=== PATIENT | female | born 1975 | race Caucasian/White ===

== ENCOUNTER 2019-06-07 18:28 | Emergency (ER) | payer MEDICAID, OTHER ==
[~2019-06-07] VITALS: Ht 175.3 cm; Wt 95.6 kg
--- NOTE | 2019-06-07 18:46 | ED Lower Extremity ---
General Stated Complaint: KNEE PAIN Source: patient History of Present Illness Date Seen by Provider: Jun 07, 2019 Time Seen by Provider: 19:34 Initial Comments 44 yo F presenting with complaints of right knee pain that has been going on since March. She had pain to medial knee initially but now it is more to the lateral part of her knee. She has been having some arthritis and take Aleve with improved pain. However in the last month or so it was not helping as much and the lateral part of her knee was hurting more. She has Dr. Diane on her [place] Medicaid card but his office told her that she is not taking any more Med icaid patients. She denies any injury to the knee. She does help her dad and when she helps him get in and out of the car she does have to bend down a lot because the car is low to the ground. She was hoping to get a knee brace to help with her pain and symptoms. Allergies and Home Medications Allergies Coded Allergies: peanut oil (Verified Allergy, Unknown, 06/07/19) Patient Home Medication List Home Medication List Reviewed: Yes Review of Systems Constitutional: No chills, No fever EENTM: no symptoms reported Respiratory: no symptoms reported Cardiovascular: no symptoms reported Gastrointestinal: no symptoms reported Genitourinary: no symptoms reported Musculoskeletal: see HPI, joint pain (right knee pain ) Skin: no symptoms reported Psychiatric/Neurological: Denies Numbness, Denies Paresthesia, Denies Tingling Past Owmmwet-Pugvqz-Bmglbn Hx Past Med/Social Hx: Reviewed Nursing Past Med/Soc Hx Patient Social History Recent Foreign Travel: No Contact w/Someone Who Travel: No Past Medical History Respiratory: Yes Asthma Musculoskeletal: Yes Arthritis Physical Exam Vital Signs Vital Signs - First Documented 06/07/19 18:35 Temp 36.7 Pulse 75 Resp 18 B/P (MAP) 143/89 (107) Pulse Ox 97 O2 Delivery Room Air Capillary Refill : Height, Weight, BMI Height: '" Weight: lbs. oz. 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, alert, oriented x 3, abnormal gait (antalgic due to right knee pain) Skin: normal color, warm/dry Progress/Results/Core Measures Results/Orders My Orders Orders - REESE PINEDA MD Knee 3 View Right (06/07/19 18:45) Sampson Bandage (06/07/19 19:00) Knee Immobilizer (06/07/19 19:00) Vital Signs/I&O 06/07/19 06/07/19 18:35 19:19 Temp 36.7 36.7 Pulse 75 75 Resp 18 18 B/P (MAP) 143/89 (107) 143/89 (107) Pulse Ox 97 97 O2 Delivery Room Air Room Air Progress Progress Note #1: Progress Note Obtain xrays of the right knee to evaluate the bony structure but since the pain is along ligaments and soft tissue she likely would need outpatient evaluation with ortho or possible MRI. Progress Note #2: Progress Note No acute fracture or dislocation on films. She has arthritic changes. Treat with sampson bandage and knee immobilizer and follow up with pcp and ortho for continued care Diagnostic Imaging Diagonstic Imaging: Xray Plain Films/CT/US/NM/MRI: knee Comments NAME: [place] MEDINA [facility] REC#: [id number] PT STATUS: REG ER : 1975 PHYSICIAN: REESE PINEDA MD ADMIT DATE: 06/07/19/ER FS Draft Date of Exam:06/07/19 KNEE 3 VIEW RIGHT INDICATION: Right knee pain for one month. Time of exam: 6:51 PM 3 views of the right knee were obtained. There is medial and patellofemoral compartment degenerative change with joint space narrowing and marginal spurring. Lateral compartment is maintained. There is some spurring of the tibial spines. Corticated osseous densities project adjacent to the tibial spines on the AP view. Small loose bodies cannot be entirely excluded. No joint effusion is identified. There are no fractures. IMPRESSION: Degenerative changes and questionable small loose bodies. No acute bony abnormality is detected. Dictated on workstation # [id number] Dict: 06/07/191901 Trans: 06/07/191906 [facility] [id number] Interpreted by: CARLOS A VALDERRAMA MD Electronically signed by: Reviewed: Reviewed by Me Departure Impression Primary Impression: Strain of right knee and leg Qualified Codes: S86.911A - Strain of unspecified muscle(s) and tendon(s) at lower leg level, right leg, initial encounter Additional Impressions: Lateral knee pain Qualified Codes: M25.561 - Pain in right knee Osteoarthritis of knee Qualified Codes: M17.11 - Unilateral primary osteoarthritis, right knee Disposition: HOME, SELF-CARE Condition: Stable Departure-Patient Inst. Decision time for Depature: 19:11 Referrals: [facility] [place] Patient Instructions: Chronic Knee Pain (DC), Knee Immobilizer (DC), Knee Pain (DC) Add. Discharge Instructions: You could call Ray Raza with Orthopedics about follow up and see if he could see your for your knee. His office number is [phone] You could check with [facility] about having them help you contact Medicaid to change your doctor from Dr. Diane to a provider in the [facility] clinic so you could follow up for care there. Use Sampson bandage for support for your knee when you have to be in your car driving and otherwise you could wear the knee immobilizer to let your knee rest and see if that helps your pain improve. Continue with the Hay for pain and inflammation REESE PINEDA MD Jun 07, 2019 18:46
--- NOTE | 2019-06-07 19:08 | Diagnostic Imaging Report ---
INDICATION: Right knee pain for one month. Time of exam: 6:51 PM 3 views of the right knee were obtained. There is medial and patellofemoral compartment degenerative change with joint space narrowing and marginal spurring. Lateral compartment is maintained. There is some spurring of the tibial spines. Corticated osseous densities project adjacent to the tibial spines on the AP view. Small loose bodies cannot be entirely excluded. No joint effusion is identified. There are no fractures. IMPRESSION: Degenerative changes and questionable small loose bodies. No acute bony abnormality is detected. Dictated by: Dictated on workstation # [id number]
[2019-06-07 19:19] VITALS: BP 143/89
== END 2019-06-07 19:20 | disposition home or self-care (01) ==
LOC: ER FS 18:30
DX: S86.911A Strain of unspecified muscle(s) and tendon(s) at lower leg level, right leg, initial encounter (principal); M17.11 Unilateral primary osteoarthritis, right knee; J45.909 Unspecified asthma, uncomplicated; Z91.010 Allergy to peanuts
CPT/HCPCS: 73562

== ENCOUNTER 2021-07-15 05:34 | Outpatient (CLI) | payer MEDICAID ==
[~2021-07-15] VITALS: Ht 175.3 cm; Wt 99.7 kg
[2021-07-18] MEDS ORDERED: DICY20TA PO (11:15)
[2021-07-18] MEDS ORDERED: RT-ALBUINH IH (11:15)
[2021-07-18] MEDS ORDERED: FLUT1DIS28 IH (11:15)
== END 2021-07-18 11:17 ==
LOC: PREOP 05:34
PROVIDERS: ATTEND Surgery
DX: Z01.818 Encounter for other preprocedural examination (principal)

== ENCOUNTER 2021-07-23 10:29 | Day surgery (SDC) | payer MEDICAID ==
[~2021-07-23] VITALS: Ht 175.3 cm; Wt 99.7 kg
[~2021-07-23 10:29] MED LIST: DICY20TA PO; FLUT1DIS28 IH; RT-ALBUINH IH
[2021-07-23] MEDS ORDERED: LACTATED RINGERS 1,000 ML IV STA (10:35)
[2021-07-23] MEDS ORDERED: LACTATED RINGERS 1,000 ML IV ONE (10:39)
[2021-07-23 10:40] VITALS: BP 108/71
--- NOTE | 2021-07-23 10:41 | Progress Note-Pre Operative ---
Pre-Operative Progress Note H&P Reviewed The H&P was reviewed, patient examined and no changes noted. Date Seen by Provider: Jul 23, 2021 Time Seen by Provider: 10:40 Date H&P Reviewed: Jul 23, 2021 Time H&P Reviewed: 10:40 Pre-Operative Diagnosis: screening colonoscopy JC SETHI DO Jul 23, 2021 10:41
[2021-07-23 11:30] LABS: AMPHETAMINE SCREEN, URINE POSITIVE (NEGATIVE); BARBITURATE SCREEN URINE NEGATIVE (NEGATIVE); BENZODIAZEPINES SCREEN URINE NEGATIVE (NEGATIVE); CANNABINOID SCREEN, URINE NEGATIVE (NEGATIVE); COCAINE SCREEN URINE NEGATIVE (NEGATIVE); METHADONE STAT NEGATIVE (NEGATIVE); METHAMPHETAMINE SCREEN URINE S POSITIVE (NEGATIVE); OPIATE SCREEN URINE NEGATIVE (NEGATIVE); OXYCODONE STAT NEGATIVE (NEGATIVE); PROPOXYPHENE STAT NEGATIVE (NEGATIVE); TRICYCLIC ANTIDEPRESSANTS SCRE NEGATIVE (NEGATIVE)
== END 2021-07-23 12:00 | disposition home or self-care (01) ==
LOC: ENDO 10:29
PROVIDERS: ATTEND Surgery
DX: Z12.11 Encounter for screening for malignant neoplasm of colon (principal); K58.0 Irritable bowel syndrome with diarrhea; F17.210 Nicotine dependence, cigarettes, uncomplicated; Z53.8 Procedure and treatment not carried out for other reasons
CPT/HCPCS: 80306; 84703

== ENCOUNTER 2021-08-21 10:55 | Emergency (ER) | payer MEDICAID ==
[~2021-08-21] VITALS: Ht 175 cm; Wt 99.0 kg
[2021-08-21 10:58] VITALS: BP 124/64
[2021-08-21] MEDS ORDERED: ONDANSETRON 4 MG/2 ML (SDV) Z0FRAN IVP STA (11:20)
[2021-08-21 11:26] LABS: BILIRUBIN,URINE NEGATIVE (NEGATIVE); CLARITY,URINE CLEAR; COLOR,URINE YELLOW; GLUCOSE, URINE (UA) 3+ (NEGATIVE); KETONES,URINE 2+ (NEGATIVE); LEUKOCYTE ESTERASE ,URINE NEGATIVE (NEGATIVE); NITRITE,URINE POSITIVE (NEGATIVE); PROTEIN,URINE NEGATIVE (NEGATIVE)
[2021-08-21 11:26] LABS: BASOPHILS % (AUTO) 0 % (0-10); EOSINOPHILS % (AUTO) 0 % (0-10); HEMATOCRIT 46 % (35-52); LYMPHOCYTES # (AUTO) 1.9 10^3/uL (1.0-4.0); LYMPHOCYTES % (AUTO) 12 % (12-44); MEAN CORPUSCULAR HEMOGLOBIN 31 pg (25-34); MEAN CORPUSCULAR HGB CONC 35 g/dL (32-36); MEAN CORPUSCULAR VOLUME 90 fL (80-99); MEAN PLATELET VOLUME 12.3 fL (9.0-12.2); MONOCYTES # (AUTO) 1.1 10^3/uL (0.0-1.0); MONOCYTES % (AUTO) 7 % (0-12); NEUTROPHILS # (AUTO) 13.3 10^3/uL (1.8-7.8); NEUTROPHILS % (AUTO) 81 % (42-75); PLATELET COUNT 208 10^3/uL (130-400); WHITE BLOOD COUNT 16.4 10^3/uL (4.3-11.0)
[2021-08-21] MEDS ORDERED: NS IV 1000 ML 1,000 ML IV SCH (11:30)
[2021-08-21] MEDS ORDERED: KETOROLAC 30 MG/ML VIAL IVP ONE (11:30)
[2021-08-21 11:36] LABS: BACTERIA,URINE MODERATE /HPF; SQUAMOUS EPITHELIAL CELL,UR 0-2 /HPF
[2021-08-21] MEDS ORDERED: CATHETER FLUSH 10 ML SYR IV PRN (11:45)
[2021-08-21] MEDS ORDERED: NS 100 ML (IVPB) BAG IV ONE (11:45)
[2021-08-21] MEDS ORDERED: HOLD METFORMIN - RECEIVED CONTRAST 20 ML VIAL IV SCH (11:45)
[2021-08-21] MEDS ORDERED: IOHEXOL 350 MG/ML 100 ML (OMNIPAQUE 350) VIAL IV ONE (11:45)
[2021-08-21 11:53] LABS: ATYPICAL LYMPHOCYTES 1 %; BAND NEUTROPHILS 5 %; BASOPHILS % (MANUAL) 0 %; EOSINOPHILS % (MANUAL) 0 %; LYMPHOCYTES % (MANUAL) 17 %; MONOCYTES % (MANUAL) 3 %; NEUTROPHILS % (MANUAL) 74 %
[2021-08-21 11:54] LABS: BILIRUBIN,TOTAL 0.9 MG/DL (0.1-1.0); CALCIUM 9.2 MG/DL (8.5-10.1); CREATININE SERUM 0.51 MG/DL (0.60-1.30); POTASSIUM 3.9 MMOL/L (3.6-5.0)
[2021-08-21 11:55] LABS: ALBUMIN 3.9 GM/DL (3.2-4.5); TOTAL PROTEIN 7.6 GM/DL (6.4-8.2)
[2021-08-21 12:10] LABS: AMPHETAMINE SCREEN, URINE POSITIVE (NEGATIVE); BARBITURATE SCREEN URINE NEGATIVE (NEGATIVE); BENZODIAZEPINES SCREEN URINE NEGATIVE (NEGATIVE); CANNABINOID SCREEN, URINE NEGATIVE (NEGATIVE); COCAINE SCREEN URINE NEGATIVE (NEGATIVE); METHADONE STAT NEGATIVE (NEGATIVE); METHAMPHETAMINE SCREEN URINE S POSITIVE (NEGATIVE); OPIATE SCREEN URINE NEGATIVE (NEGATIVE); OXYCODONE STAT NEGATIVE (NEGATIVE); PROPOXYPHENE STAT NEGATIVE (NEGATIVE); TRICYCLIC ANTIDEPRESSANTS SCRE NEGATIVE (NEGATIVE)
--- NOTE | 2021-08-21 12:21 | ED Abdominal Pain ---
General Chief Complaint: Abdominal/GI Problems Stated Complaint: VOMITING; SYNCOPAL EPISODES; ABD PAIN Nursing Triage Note: Pt presents n/v since last night after she ate chicken salad. She had one episode of bloody diarrhea last night, nothing since then. C/o Right lower quadrant pain radiating to the LLQ. LS, RN History of Present Illness Date Seen by Provider: Aug 21, 2021 Time Seen by Provider: 11:10 Initial Comments 46-year-old female with PMH of asthma and IBS, is here with complaints of right lower quadrant abdominal pain which began yesterday afternoon. Patient's last meal was a chicken salad yesterday at lunch. Since then patient has had multiple episodes of nausea and vomiting has been intermittent up to about 3 AM today. No vomiting since then, but only nausea. Patient does not had anything to eat or drink today other than half a bottle of water. Patient denies fever, chills, chest pain, SOB, sick contacts, dysuria, hematuria. Patient had one episode of diarrhea around midnight. Allergies and Home Medications Allergies Coded Allergies: peanut oil (Verified Allergy, Unknown, 06/07/19) Patient Home Medication List Home Medication List Reviewed: Yes Albuterol Sulfate (Proair Hfa) 1 Puff Puff, 2 PUFF IH Q4H PRN for WHEEZING, (Re ported) Entered as Reported by: EMILIANO WOODSON on 07/18/21 111 Dicyclomine HCl (Dicyclomine HCl) 20 Mg Tablet, 20 MG PO QID, (Reported) Entered as Reported by: EMILIANO WOODSON on 07/18/21 1115 Fluticasone/Salmeterol (Advair 100-50 Diskus) 1 Each Blst.w.dev, 1 EACH IH BID, (Reported) Entered as Reported by: EMILIANO WOODSON on 07/18/21 1115 Review of Systems Review of Systems Constitutional: no symptoms reported EENTM: No Symptoms Reported Respiratory: No Symptoms Reported Cardiovascular: No Symptoms Reported Gastrointestinal: Abdominal Pain, Nausea, Vomiting Genitourinary: No Symptoms Reported Musculoskeletal: no symptoms reported Skin: no symptoms reported Psychiatric/Neurological: No Symptoms Reported Endocrine: No Symptoms Reported Hematologic/Lymphatic: No Symptoms Reported Past Zkralim-Okzgwl-Wakpwt Hx Patient Social History Tobacco Use?: Yes Tobacco type used: Cigarettes Smoking Status: Current Everyday Smoker Smokeless Tobacco Frequency: Never a User Use of E-Cig and/or Vaping dev: No Use of E-Cig and/or Vaping Vidal: Never a User Substance use?: Yes Substance type: Marijuana Substance frequency: Daily Alcohol Use?: No Pt feels they are or have been: No Immunizations Up To Date First/Initial COVID19 Vaccinat: NO Second COVID19 Vaccination Herbie: NO Third COVID19 Vaccination Date: NO Seasonal Allergies Seasonal Allergies: No Past Medical History Surgeries: Yes (when 1 yrs old had open heart sx for cyst on heart) Respiratory: Yes Asthma Cardiac: No Neurological: No Genitourinary: No Gastrointestinal: Yes Irritable Bowel Musculoskeletal: Yes Arthritis Endocrine: No HEENT: No Cancer: No Psychosocial: No Integumentary: No Blood Disorders: No Physical Exam Vital Signs Vital Signs - First Documented 08/21/21 10:58 Temp 36.2 Pulse 84 Resp 14 B/P (MAP) 124/64 (84) Pulse Ox 97 O2 Delivery Room Air Capillary Refill : Less Than 3 Seconds Height/Weight/BMI Height: '" Weight: lbs. oz. kg; 32.00 BMI Method: General Appearance: moderate distress, obese Respiratory: chest non-tender, lungs clear, normal breath sounds, no respiratory distress Cardiovascular: normal peripheral pulses, regular rate, rhythm Gastrointestinal: soft, no organomegaly, abnormal bowel sounds (quiet bowel sounds), tenderness (in RLQ) Extremities: normal range of motion Back: normal inspection, no CVA tenderness Neurologic/Psychiatric: alert, normal mood/affect, oriented x 3 Skin: normal color Progress/Results/Core Measures Results/Orders Lab Results Laboratory Tests Test 08/21/21 11:00 08/21/21 11:17 Range/Units Urine Color YELLOW Urine Clarity CLEAR Urine pH 6.0 5-9 Urine Specific [place] 1.010 L 1.016-1.022 Urine Protein NEGATIVE NEGATIVE Urine Glucose (UA) 3+ H NEGATIVE Urine Ketones 2+ H NEGATIVE Urine Nitrite POSITIVE H NEGATIVE Urine Bilirubin NEGATIVE NEGATIVE Urine Urobilinogen 0.2 < = 1.0 MG/DL Urine Leukocyte Esterase NEGATIVE NEGATIVE Urine RBC (Auto) NEGATIVE NEGATIVE Urine RBC NONE /HPF Urine WBC 10-25 H /HPF Urine Squamous Epithelial Cells 0-2 /HPF Urine Crystals NONE /LPF Urine Bacteria MODERATE H /HPF Urine Casts NONE /LPF Urine Mucus NEGATIVE /LPF Urine Culture Indicated YES Urine Opiates Screen NEGATIVE NEGATIVE Urine Oxycodone Screen NEGATIVE NEGATIVE Urine Methadone Screen NEGATIVE NEGATIVE Urine Propoxyphene Screen NEGATIVE NEGATIVE Urine Barbiturates Screen NEGATIVE NEGATIVE Ur Tricyclic Antidepressants Screen NEGATIVE NEGATIVE Urine Phencyclidine Screen NEGATIVE NEGATIVE Urine Amphetamines Screen POSITIVE H NEGATIVE Urine Methamphetamines Screen POSITIVE H NEGATIVE Urine Benzodiazepines Screen NEGATIVE NEGATIVE Urine Cocaine Screen NEGATIVE NEGATIVE Urine Cannabinoids Screen NEGATIVE NEGATIVE White Blood Count 16.4 H 4.3-11.0 10^3/uL Red Blood Count 5.14 H 3.80-5.11 10^6/uL Hemoglobin 16.0 11.5-16.0 g/dL Hematocrit 46 35-52 % Mean Corpuscular Volume 90 80-99 fL Mean Corpuscular Hemoglobin 31 25-34 pg Mean Corpuscular Hemoglobin Concent 35 32-36 g/dL Red Cell Distribution Width 13.1 10.0-14.5 % Platelet Count 208 130-400 10^3/uL Mean Platelet Volume 12.3 H 9.0-12.2 fL Immature Granulocyte % (Auto) 1 % Neutrophils (%) (Auto) 81 H 42-75 % Lymphocytes (%) (Auto) 12 12-44 % Monocytes (%) (Auto) 7 0-12 % Eosinophils (%) (Auto) 0 0-10 % Basophils (%) (Auto) 0 0-10 % Neutrophils # (Auto) 13.3 H 1.8-7.8 10^3/uL Lymphocytes # (Auto) 1.9 1.0-4.0 10^3/uL Monocytes # (Auto) 1.1 H 0.0-1.0 10^3/uL Eosinophils # (Auto) 0.0 0.0-0.3 10^3/uL Basophils # (Auto) 0.0 0.0-0.1 10^3/uL Immature Granulocyte # (Auto) 0.1 0.0-0.1 10^3/uL Neutrophils % (Manual) 74 % Lymphocytes % (Manual) 17 % Monocytes % (Manual) 3 % Eosinophils % (Manual) 0 % Basophils % (Manual) 0 % Band Neutrophils 5 % Atypical Lymphocytes 1 % Sodium Level 134 L 135-145 MMOL/L Potassium Level 3.9 3.6-5.0 MMOL/L Chloride Level 98 98-107 MMOL/L Carbon Dioxide Level 20 L 21-32 MMOL/L Anion Gap 16 H 5-14 MMOL/L Blood Urea Nitrogen 11 7-18 MG/DL Creatinine 0.51 L 0.60-1.30 MG/DL Estimat Glomerular Filtration Rate 116 BUN/Creatinine Ratio 22 Glucose Level 394 H 70-105 MG/DL Calcium Level 9.2 8.5-10.1 MG/DL Corrected Calcium 9.3 8.5-10.1 MG/DL Total Bilirubin 0.9 0.1-1.0 MG/DL Aspartate Amino Transf (AST/SGOT) 40 H 5-34 U/L Alanine Aminotransferase (ALT/SGPT) 51 0-55 U/L Alkaline Phosphatase 135 40-136 U/L Total Protein 7.6 6.4-8.2 GM/DL Albumin 3.9 3.2-4.5 GM/DL Lipase 27 8-78 U/L Human Chorionic Gonadotropin, Quant < 5 <5 MIU/ML My Orders Orders - LUZ GABRIEL MD Comprehensive Metabolic Panel (08/21/21 11:18) Lipase (08/21/21 11:18) Ua Culture If Indicated (08/21/21 11:18) Ed Iv/Invasive Line Start (08/21/21 11:18) Cbc With Automated Diff (08/21/21 11:18) Ct Abdomen/Pelvis W (08/21/21 11:18) Hcg,Quantitative (08/21/21 11:18) Drug Screen Stat (Urine) (08/21/21 11:20) Ketorolac Injection (Toradol Injection) (08/21/21 11:30) Ondansetron Injection (Zofran Injectio (08/21/21 11:20) Ed Iv/Invasive Line Start (08/21/21 11:21) Ns Iv 1000 Ml (Sodium Chloride 0.9%) (08/21/21 11:30) Manual Differential (08/21/21 11:17) Iohexol Injection (Omnipaque 350 Mg/Ml 1 (08/21/21 11:45) Received Contrast (Hold Metformin- Contr (08/21/21 11:45) Sodium Chloride Flush (Catheter Flush Sy (08/21/21 11:45) Ns (Ivpb) (Sodium Chloride 0.9% Ivpb Bag (08/21/21 11:45) Urine Culture (08/21/21 11:00) Blood Culture (08/21/21 12:27) Ceftriaxone 1 Gm Pre-Mix (Rocephin 1 Gm (08/21/21 12:27) Medications Given in ED Current Medications Medications Dose Ordered Sig/Toñito Route Start Time Stop Time Status Last Admin Dose Admin Iohexol 100 ml ONCE ONCE IV 08/21/21 11:45 08/21/21 11:46 DC 08/21/21 12:09 100 ML Ketorolac Tromethamine 15 mg ONCE ONCE IVP 08/21/21 11:30 08/21/21 11:31 DC 08/21/21 11:39 15 MG Sodium Chloride 10 ml NEEDED PRN IV 08/21/21 11:45 08/21/21 12:09 10 ML Sodium Chloride 100 ml ONCE ONCE IV 08/21/21 11:45 08/21/21 11:46 DC 08/21/21 12:09 100 ML Vital Signs/I&O 08/21/21 10:58 Temp 36.2 Pulse 84 Resp 14 B/P (MAP) 124/64 (84) Pulse Ox 97 O2 Delivery Room Air Blood Pressure Mean: 84 Progress Progress Note : Progress Note 1. ABDOMINAL PAIN/ACUTE ENTERITIS/ UTI: - CT ABD & PELVIS: - CBC: WBC is 16.4 with a left shift - UA shows positive nitrites and WBC with moderate bacteria - Ceftriaxone 1gm iv STAT - Toradol 15mg and Zofran 4mg iv STAT - NS IVF bolus - Pt feels better with treatment - Will discharge pt with prescriptions for Cefpodoxime, Zofran prn, and pepcid. - F/u with PCP camacho. - Advised to keep well hydrated -The patient was seen in the ED, and treated appropriately to presentation at a specific point in time. Patient is informed that there is a possibility that disease and illness can evolve and change in acuity rapidly or slowly after patient is discharged from the ER. Precautionary advice given to the patient for immediate return to ER if symptoms worsen or do not resolve, and to seek emergency care sooner rather than later. Pt also advised on the importance of PCP follow up and compliance with management and follow up plan. Pt verbally expressed understanding. 2. METHAMPHETAMINE ABUSE: - UDS is positive for methamphetamine - Advised not to use drugs. Diagnostic Imaging Diagonstic Imaging: CT Plain Films/CT/US/NM/MRI: abdomen Comments [place], [place] NAME: [place] MEDINA [facility] REC#: [id number] PT STATUS: REG ER : 1975 PHYSICIAN: LUZ GABRIEL MD ADMIT DATE: 08/21/21/ER FS Draft Date of Exam:08/21/21 CT ABDOMEN/PELVIS W PROCEDURE: CT abdomen and pelvis with contrast. TECHNIQUE: Multiple contiguous axial images were obtained through the abdomen and pelvis after administration of intravenous contrast. Auto Exposure Controls were utilized during the CT exam to meet ALARA standards for radiation dose reduction. All CT scans use one or more of the following dose optimizing techniques: automated exposure control, MA and/or KvP adjustment based on patient size and exam type or iterative reconstruction. INDICATION: Nausea, emesis and abdominal pain. There is mild heterogeneous low density throughout the liver likely due to hepatic steatosis. No focal mass or biliary ductal dilatation is identified and gallbladder is unremarkable in appearance. There is no evidence of pancreatic, adrenal gland or splenic abnormality. Stomach is distended with fluid in particular matter. There is no evidence of adrenal gland or renal lesion. There is a small amount of free fluid in the lower abdomen and pelvis. There is also edema and/or inflammation within the mesentery most pronounced in right lower quadrant. There is extensive mural thickening of right lower quadrant small bowel loops. No pneumoperitoneum or organized fluid collection is seen. Unopacified urinary bladder is unremarkable. IMPRESSION: Rather extensive mural thickening in the small bowel right lower quadrant may represent enteritis. Possibility of inflammatory bowel disease is not excluded. No perforation or obstruction is identified. There is no evidence of abscess. Otherwise note is made of hepatic steatosis without other acute abnormality identified. Dictated on workstation # [id number] Dict: 08/21/21 1216 Trans: 08/21/21 1223 CV [id number] Interpreted by: KYLE GUZMAN MD Electronically signed by: Departure Impression Primary Impression: Enteritis Additional Impressions: Abdominal pain Qualified Codes: R10.31 - Right lower quadrant pain UTI (urinary tract infection) Qualified Codes: N39.0 - Urinary tract infection, site not specified Methamphetamine abuse Disposition: HOME, SELF-CARE Condition: Improved Departure-Patient Inst. Referrals: KIT HOANG (PCP) Primary Care Physician [facility] (Family) Primary Care Physician Patient Instructions: Inflammatory Bowel Disease, Colitis (DC), Meth Mouth, Nausea and Vomiting, Adult ED Add. Discharge Instructions: F/u with PCP in the next 3 days Cefpdoxime 100mg BID for 7 days Zofran Q4H as needed for nausea and vomiting - Advised to keep well hydrated - Return to ER if symptoms do not improve or if it worsens - Advised not to take methamphetamines The patient was seen in the ED, and treated appropriately to presentation at a specific point in time. Patient is informed that there is a possibility that disease and illness can evolve and change in acuity rapidly or slowly after patient is discharged from the ER. Precautionary advice given to the patient for immediate return to ER if symptoms worsen or do not resolve, and to seek emergency care sooner rather than later. Pt also advised on the importance of PCP follow up and compliance with management and follow up plan. Pt verbally expressed understanding. All discharge instructions reviewed with patient and/or family. Voiced understanding. Scripts Famotidine (Pepcid) 20 Mg Tablet 20 MG PO DAILY for 5 Days, #5 TAB Prov: LUZ GABRIEL MD 08/21/21 Ondansetron (Ondansetron Odt) 4 Mg Tab.rapdis 4 MG PO Q6H PRN for NAUSEA/VOMITING for 3 Days, #12 TAB Prov: LUZ GABRIEL MD 08/21/21 Cefpodoxime Proxetil (Cefpodoxime Proxetil) 100 Mg Tablet 100 MG PO Q12H for 7 Days, #14 TAB Prov: LUZ GABRIEL MD 08/21/21 LUZ GABRIEL MD Aug 21, 2021 12:21
[2021-08-21] MEDS ORDERED: cefTRIAXone 1 GM PRE-MIX 50 ML IV STA (12:27)
[2021-08-21] MEDS ORDERED: CEFP100T2 PO (13:01)
[2021-08-21] MEDS ORDERED: ONDA4TAB11 PO (13:01)
[2021-08-21] MEDS ORDERED: FAMO-119 PO (13:01)
== END 2021-08-21 13:13 | disposition home or self-care (01) ==
LOC: EDUNIT# 10:55 → ER FS 10:57
DX: K52.9 Noninfective gastroenteritis and colitis, unspecified (principal); N39.0 Urinary tract infection, site not specified; F15.10 Other stimulant abuse, uncomplicated; E66.9 Obesity, unspecified; F17.210 Nicotine dependence, cigarettes, uncomplicated; Z68.32 Body mass index [BMI] 32.0-32.9, adult
CPT/HCPCS: 36415; 74177; 80053; 80306; 81000; 83690; 84702; 85007; 85027; 87040; 87077; 87088; Q9967